=== PATIENT | female | born 1950 | race Caucasian/White ===

== ENCOUNTER 2020-03-14 05:54 | Day surgery (SDC) | payer MEDICARE, BC ==
[~2020-03-14 05:54] MED LIST: Dextrose 5%-0.45% NaCl 1,000 ML IV SCH; Sodium Chloride 0.9% 10 ML Syringe FLUSH PRN
[2020-03-14] MEDS ORDERED: Midazolam 1 MG/ML 2 ML SDV IV ONE ×3 (05:55→06:55)
[2020-03-14] MEDS ORDERED: fentaNYL 100 MCG/2 ML SDV IV ONE ×3 (05:55→06:54)
[2020-03-14] MEDS ORDERED: Dextrose 5%-0.45% NaCl 1,000 ML IV SCH (06:00)
[2020-03-14] MEDS ORDERED: Sodium Chloride 0.9% 10 ML Syringe FLUSH PRN (06:00)
[2020-03-14] MEDS ORDERED: fentaNYL 100 MCG/2 ML SDV ONE (06:16)
[2020-03-14] MEDS ORDERED: Midazolam 1 MG/ML 2 ML SDV ONE (06:16)
--- NOTE | 2020-03-14 09:12 | OR ---
DATE: 03/14/2020 PROCEDURES: Esophagogastroduodenoscopy and multiple pinch biopsies. INSTRUMENT USED: GIF-HQ190 Olympus video panendoscope. PREMEDICATIONS: No oral or topical anesthesia used. Fentanyl 100 mcg intravenous, Versed 2 mg intravenous. Nasal O2 cannula. The procedure was done under pulse oximetry, BP recording, and bus driver/monitor. INDICATION: The patient with persistent abdominal pain, dyspepsia. The abdominal pain was unexplained and not responsive to medical measures, diabetic, on multiple medications. Esophagogastroduodenoscopy is performed for detection of any active erosive lesions, Maciel esophagus, and/or malignancy also under consideration, H pylori status to be determined, small bowel biopsies to be obtained for celiac disease if indicated, endoscopic hemostasis therapy if needed. DESCRIPTION OF PROCEDURE: The scope was passed with ease. Adequate visualization of the esophagus was made from proximal to distal areas. No upper esophageal lesions identified. No distal esophageal stricture. No uphill or downhill esophageal varices. No Chayo-Ledesma tear. No evidence of erosive esophagitis by [place] criteria. No esophageal polyp or tumor mass identified. Z-line was seen at around 40 cm distal to the oral verge, configuration consistent with grade 1 by ZAP classification. No esophageal polyp or tumor mass identified. No proximal gastric varices noted. Gastric fundus examination by retroflexion showed benign-appearing diminutive multiple polyps. No proximal gastric varices noted. No gastric ulcer, malignant mass, or vascular ectasia identified. Duodenal bulb showed no ulcer. Visualized second part of the duodenum was unremarkable. Multiple pinch biopsies, 4 in number, were taken from different areas of the second part of the duodenum and tissues were also obtained from the duodenal bulb at 9 and 12 o'clock positions and sent for any histopathologic evidence of celiac disease. Multiple pinch biopsies were taken from the gastric antrum and proximal body and sent for PyloriTek test for H pylori and histopathology. No bleeding was noted from any of the visualized areas at the completion of examination. Photographs were taken of the duodenal bulb, gastric antrum, fundus, and distal esophagus. IMPRESSION: Diminutive gastric fundus polyps. The patient tolerated the procedure well. [facility] /[id number]
== END 2020-03-14 09:18 | disposition home or self-care (01) ==
LOC: DL.ENDO 05:54
PROVIDERS: ATTEND Internal Medicine Gastroenterology
DX: K31.7 Polyp of stomach and duodenum (principal); F41.1 Generalized anxiety disorder; E11.9 Type 2 diabetes mellitus without complications; E78.5 Hyperlipidemia, unspecified; Z98.890 Other specified postprocedural states; Z88.2 Allergy status to sulfonamides; Z85.3 Personal history of malignant neoplasm of breast; Z90.10 Acquired absence of unspecified breast and nipple; Z79.899 Other long term (current) drug therapy; Z79.84 Long term (current) use of oral hypoglycemic drugs
CPT/HCPCS: 87077; J2250; J3010; J7042